=== PATIENT | male | born 1955 | race Caucasian/White ===

== ENCOUNTER 2017-05-27 08:42 | Outpatient (CLI) | payer BC, MEDICARE ==
[2017-05-27 11:55] LABS: Red Blood Cell (RBC) Count 5.16 mill/uL (4.70-6.10); White Blood Cell (WBC) Count 4.4 thou/uL (4.8-10.8)
[2017-05-27 12:01] LABS: PTT 29.2 SEC (22.9-36.1); Prothrombin Time 13.8 SEC (12.0-14.7)
[2017-05-27 12:11] LABS: Anion Gap 15 mmol/L (10-20); BUN (Urea Nitrogen) 15 mg/dL (8.4-25.7); Calc. Creatinine Clearance 0 mL/min (70-130); Calcium 9.4 mg/dL (7.8-10.44); Carbon Dioxide 18 mmol/L (23-31); Estimated GFR-MDRD Greater than 90
--- NOTE | 2017-05-27 12:14 | EKG ---
Test Reason : PEROP Blood Pressure : / mmHG Vent. Rate : 055 BPM Atrial Rate : 055 BPM P-R Int : 164 ms QRS Dur : 086 ms QT Int : 408 ms P-R-T Axes : 019 010 016 degrees QTc Int : 390 ms Sinus bradycardia interference artifact No previous ECGs available Confirmed by DR. Carlos KEARNS ([id number]) on 05/27/2017 12:14:24 PM Referred By: RAGHAVENDRA Confirmed By:DR. Carlos KEARNS
[2017-05-27 12:20] LABS: Chloride 108 mmol/L (98-107)
== END 2017-05-27 08:43 | disposition home or self-care (01) ==
LOC: LABBT 08:42
PROVIDERS: ATTEND Orthopaedic Surgery
DX: Z01.818 Encounter for other preprocedural examination (principal); M16.12 Unilateral primary osteoarthritis, left hip
CPT/HCPCS: 80048; 85027; 85610; 85730; 86850; 86900; 86901; 87081; 93005; 93010

== ENCOUNTER 2017-05-27 09:00 | Inpatient (IN) | payer BC, MEDICARE ==
[2017-05-27 09:26] VITALS: BMI 41.8
[2017-06-02] MEDS ORDERED: Fentanyl 100 MCG/2 ML VIAL ONE ×4 (06:14→09:49)
[2017-06-02] MEDS ORDERED: Ropivacaine 0.2% HCl/PF 0 ML ONE (06:14)
[2017-06-02] MEDS ORDERED: Phenylephrine 10 MG/NS 250 ML 0 ML ONE (06:15)
[2017-06-02] MEDS ORDERED: Midazolam HCl 2 mg/2 ml Vial ONE ×2 (06:19→08:19)
[2017-06-02] MEDS ORDERED: Tranexamic Acid 1,000 MG/100 ML BAG ONE ×2 (06:51→10:42)
[2017-06-02] MEDS ORDERED: CEFAZOLIN/Water 2 GM/20 ML SYRINGE ONE (06:51)
[2017-06-02] MEDS ORDERED: Morphine 2 MG/ML SYRINGE IVP PRN (08:18)
[2017-06-02] MEDS ORDERED: Ondansetron HCl/PF 4 MG/2 ML Vial IVP PRN ×3 (08:18→12:00)
[2017-06-02] MEDS ORDERED: diphenhydrAMINE 25 MG CAP PO PRN ×2 (08:18→12:00)
[2017-06-02] MEDS ORDERED: Zolpidem Tartrate 5 MG TAB PO PRN ×2 (08:18→12:00)
[2017-06-02] MEDS ORDERED: Tranexamic Acid 1,000 MG in Sodium Chloride 0.9% 100 ML IVPB SCH ×3 (08:30→11:00)
[2017-06-02] MEDS ORDERED: Ondansetron HCl/PF 4 MG/2 ML Vial ONE (08:33)
[2017-06-02] MEDS ORDERED: Vecuronium 10 MG VIAL ONE (08:33)
[2017-06-02] MEDS ORDERED: Succinylcholine Chloride 20 MG/ML 10 ml SYRINGE FS ONE (08:33)
[2017-06-02] MEDS ORDERED: Propofol 200 MG/20 ML VIAL ONE (08:33)
[2017-06-02] MEDS ORDERED: Glycopyrrolate 0.2 MG/ML 5 ML SYRINGE ONE (08:33)
[2017-06-02] MEDS ORDERED: Promethazine HCl 25 MG/ML VIAL SLOW IVP PRN (10:32)
[2017-06-02] MEDS ORDERED: Promethazine HCl 25 MG/ML VIAL IM PRN ×2 (10:32→12:00)
[2017-06-02] MEDS ORDERED: HYDROmorphone 2 MG/ML VIAL SLOW IVP PRN (10:32)
[2017-06-02] MEDS ORDERED: Fentanyl 20 MCG/ML 250 ML ONE (10:42)
[2017-06-02] MEDS ORDERED: Morphine 10 MG/ML VIAL SLOW IVP PRN (10:50)
--- NOTE | 2017-06-02 11:46 | RAD ---
SINGLE FRONTAL RADIOGRAPH OF LEFT HIP 06/02/2017 HISTORY: Total hip arthroplasty. FINDINGS: Intraoperative image provided. The image demonstrates a femoral stem in the proximal femur and an a cetabular component. The femoral neck component is not present on this examination. Femoral head c omponent is not present either. Intraoperative gas associated with operative change overlies greate r trochanter. IMPRESSION: Single frontal radiograph left hip during placement of arthroplasty as detailed above. POS: [facility]
[2017-06-02] MEDS ORDERED: Ketorolac Tromethamine 30 MG/ML VIAL IVP PRN (12:00)
[2017-06-02] MEDS ORDERED: Fentanyl 5000 MCG/250 ML CADD IV PRN (12:00)
[2017-06-02] MEDS ORDERED: Naloxone HCl 0.4 mg/ml Vial IV PRN (12:00)
[2017-06-02] MEDS ORDERED: diphenhydrAMINE 50 MG/ML VIAL IM/IV PRN (12:00)
--- NOTE | 2017-06-02 13:24 | OP ---
DATE OF PROCEDURE: 06/02/2017 PREOPERATIVE DIAGNOSIS: Osteoarthritis, left hip. POSTOPERATIVE DIAGNOSIS: Osteoarthritis, left hip. PROCEDURE: Left total hip arthroplasty. ANESTHESIA: General. SURGEON: Ryne Vann M.D. BRONC BREAKER: KIRT Crowley. COMPLICATIONS: None. CONDITION: Good. ESTIMATED BLOOD LOSS: 250 mL. DRAINS: None. TOURNIQUET: None. TECHNIQUE: Consent was obtained. The patient taken to the operating room and placed in supine posi tion. After adequate general anesthesia had been achieved, the patient was placed in the right late ral decubitus position. Axillary roll and hip positioner. The left hip was examined. The patient had marked restriction of motion with approximately 5 degree flexion contracture and flexion up to 1 00 degrees. There is very limited internal and external rotation. Abduction is limited to less jalil n 30 degrees. The left hip and lower extremity were then prepped and draped in usual sterile fashio n. A limited posterolateral approach was performed. The gluteal fascia was split longitudinally ex posing short rotators and piriformis. The piriformis released from its insertion and a posterior ca psular incision was made. The hip was dislocated without complication and the appropriate neck rese ction performed. The head was removed and had grade 4 changes with eburnated bone. There was signi ficant clear joint fluid. The femur was then prepared using sequential hand reamers and broaches up to a size 5. The SI size 5 trial was left in place and the acetabulum exposed. The patient had la rge osteophytes diffusely. These were resected and the reaming was started at 49 mm using the acces jona lateral portal. Sequential reaming was taken up to 54 mm and a 54 mm Dynasty cup was inserted. The single superior screw was placed and a trial 15 degree liner placed posterior superior. A shmuel rt neck with a medium head was placed and the hip put through a range of motion and leg lengths were clinically equal. The patient still has mild flexure contracture, but significant improvement in r otation and abduction. The patient had good stability with extension and external rotation along wi th abduction and flexion and internal rotation. The radiographs showed adequate position and alignm ent of the implant. The trials were then removed. The 15 degree liner was placed posterior superio r, the size 5 Profemur Z stem was then inserted and the medium 38 mm head. Again, reduction was ach ieved and excellent range of motion and stability were noted. The piriformis and posterior capsule were repaired with some #2 Mersilene, the gluteal fascia was closed with #1 Vicryl, subcutaneous wit h 0 and 2-0 Vicryl, and skin with ralph. Sterile bulky dressing was applied. The patient was taken to recovery in stable condition. We will begin rehab protocol. Prognosis is good. KIRT Crowley was instrumental in the safe fastidious placement of this prosthesis. He is skilled in the positioning and maneuvering of the patient for both reduction and retraction to allow success ful placement of the implant. He has skills which are above the standard medical surgical tech available. He assisted in positioning, retraction, reduction, and closure and transfer of the patient during th is procedure.
[2017-06-02] MEDS ORDERED: Cepastat Lozenges 1 LOZ PO PRN (13:56)
[2017-06-02] MEDS: Sodium Chloride 0.9% 1,000 ML IV SCH ×2 (14:04→19:41)
[2017-06-02] MEDS: Aspirin 325 MG TAB PO SCH ×2 (14:04→20:47)
[2017-06-02] MEDS: Ketorolac Tromethamine 30 MG/ML VIAL IVP SCH ×2 (14:05→18:12)
[2017-06-02] MEDS: Senokot S 8.6-50 MG TAB PO SCH ×2 (14:05→20:46)
--- NOTE | 2017-06-02 14:43 | RAD ---
LEFT HIP TWO VIEWS: HISTORY: A 62-year-old male post-op total hip replacement. FINDINGS: Recent total left hip replacement changes are noted without evidence for dislocation or periprosthet ic fracture. IMPRESSION: Unremarkable recent post total left hip replacement changes. POS: [facility]
[2017-06-02] MEDS: CEFAZOLIN/Water 2 GM/20 ML SYRINGE SLOW IVP SCH ×2 (15:51→23:23)
--- NOTE | 2017-06-02 20:36 | HP ---
DATE OF ADMISSION: 06/02/2017 HISTORY OF PRESENT ILLNESS: This is a 62-year-old white male with arthritis of the left hip and chr onic hip pain. Today, he underwent a left hip ORIF by Dr. Vann. The procedure went well. The eugenio saldaña is doing well at this time. He has ambulated today. No other complaints. PAST MEDICAL HISTORY: Fatty liver, cirrhosis, followed by Dr. Pablo; hypertension; hyperlipidemia; ankylosing spondylitis; obesity; depression; BPH; and erectile dysfunction. PAST SURGICAL HISTORY: Include cholecystectomy in 2010. FAMILY HISTORY: Father from prostate cancer. Mother at a skilled nursing. Manolo padron did suffer a stroke and had heart disease. He does have one son and daughter who are healthy. SOCIAL HISTORY: He does not smoke. He uses smokeless tobacco. He does not drink alcohol. He is m arried. He has 2 kids. He dips snuff 3-4 times per day and uses 1 can approximately every 3 days. MEDICATIONS: Fish oil 1000 two b.i.d., aspirin 81 mg daily, multivitamin daily, vitamin E daily, Pr otonix p.r.n., lisinopril/HCTZ 10/12.5 daily. ALLERGIES: Norgesic Forte which causes GI upset. REVIEW OF SYSTEMS: As above. PHYSICAL EXAMINATION: VITAL SIGNS: Temperature 97.6, pulse 71, respirations 20, pulse ox 94, blood pressure 113/71. GENERAL: In no acute distress. HEENT: Clear. HEART: Regular rate and rhythm. LUNGS: Clear. ABDOMEN: Soft. EXTREMITIES: No edema, ice presently on left hip. LABORATORY: None. ASSESSMENT: 1. Postop day #0 status post left hip open reduction internal fixation by Dr. Vann. 2. Hypertension. 3. Morbid obesity. 4. Fatty liver/cirrhosis. 5. Hyperlipidemia. 6. Anxiety disorder. PLAN: 1. Routine postop left hip ORIF protocol. 2. Resume lisinopril/HCTZ daily. 3. We will follow in the hospital.
[2017-06-02] MEDS: Lisinopril/Hydrochlorothiazide 10 mg/12.5 mg Tablet PO SCH (20:45)
[2017-06-02] MEDS ORDERED: Non-Formulary Item 1 EACH (Multivit-Min/Fa/Lycopen/Lutein [Centrum Silver Men Tablet] 1 T PO SCH (21:00)
[2017-06-03] MEDS: Sodium Chloride 0.9% 1,000 ML IV SCH ×2 (04:44→08:10)
[2017-06-03 05:54] LABS: Hematocrit 43.9 % (42.0-52.0); Mean Platelet Volume 8.5 fL (7.4-10.4); Red Blood Cell (RBC) Count 4.63 mill/uL (4.70-6.10); White Blood Cell (WBC) Count 6.3 thou/uL (4.8-10.8)
[2017-06-03] MEDS: Ketorolac Tromethamine 30 MG/ML VIAL IVP SCH ×4 (07:15→18:22)
[2017-06-03] MEDS: Aspirin 325 MG TAB PO SCH ×2 (08:07→20:47)
[2017-06-03] MEDS: Senokot S 8.6-50 MG TAB PO SCH ×2 (08:07→20:48)
[2017-06-03] MEDS: Ferrous Gluconate 324 MG TAB PO SCH ×2 (08:07→20:47)
[2017-06-03] MEDS: Multivitamin W/ Minerals 1 TAB PO SCH (08:07)
--- NOTE | 2017-06-03 08:10 | PRG ---
DATE OF SERVICE: 06/03/2017 PRIMARY CARE PHYSICIAN: Dr. Jaziel Dave. Postop day #1, status post left hip arthroplasty. SUBJECTIVE: The patient continues to have pain in left hip and groin. Has adequate pain that relieved with analgesics. He denies chest pain, shortness of breath or palpitations. So far postop period has been uneventful with physical therapy. OBJECTIVE: VITAL SIGNS: Temperature 98.4, pulse of 89, respirations 16, blood pressure 112 /65, pulse ox is 93% on room air. GENERAL: He is awake and alert, in no acute distress. Speech is clear. NECK: Supple. HEART: Regular rate and rhythm. LUNGS: Clear bilaterally. EXTREMITIES: Dressing in place. No edema. LABORATORY DATA: Hemoglobin and hematocrit are 14.3 and 43.6. ASSESSMENT AND PLAN: This is a 62-year-old gentleman with a history of hypertension, cirrhosis secondary to nonalcoholic steatohepatitis, status post repair of left hip fracture. 1. Postop plan per Dr. Vann including pain management and post operative therapy 2. Hypertension. We will continue lisinopril/hydrochlorothiazide. 3. Fatty liver cirrhosis. Continue to follow up as an outpatient with Dr. Pablo. 4. Disposition. Hopefully home tomorrow. [facility]OSPITALRosemary
[2017-06-03] MEDS ORDERED: Fentanyl 5000 MCG/250 ML CADD IV PRN (10:29)
[2017-06-03] MEDS: Lisinopril/Hydrochlorothiazide 10 mg/12.5 mg Tablet PO SCH (20:47)
[2017-06-04] MEDS: Ketorolac Tromethamine 30 MG/ML VIAL IVP SCH ×3 (00:48→12:53)
[2017-06-04] MEDS: Sodium Chloride 0.9% 1,000 ML IV SCH ×2 (01:26→11:31)
[2017-06-04 04:41] LABS: Hematocrit 40.1 % (42.0-52.0); Mean Platelet Volume 8.2 fL (7.4-10.4); Red Blood Cell (RBC) Count 4.22 mill/uL (4.70-6.10); White Blood Cell (WBC) Count 6.9 thou/uL (4.8-10.8)
--- NOTE | 2017-06-04 08:26 | PRG ---
DATE OF SERVICE: 06/04/2017 PRIMARY CARE PHYSICIAN: Dr. Jaziel Dave. Postop day #2, status post left hip arthroplasty. SUBJECTIVE: The patient has pain in his left hip, groin, and left knee. He has good relief with an algesics, but complaining more of his knee pain now. He denies chest pain, shortness of breath or p alpitations. He is tolerating physical therapy and ambulating in the [place]. His blood pressure has been low. He admits to occasional lightheadedness when bending over. PHYSICAL EXAMINATION: VITAL SIGNS: Temperature 98.5, pulse is 79, respirations 18, blood pressure this morning was 103/61 , last night was 113/70, pulse ox is 97% on room air. GENERAL: He is awake and alert, in no acute distress. HEENT: Speech is clear. NECK: Supple. HEART: Regular rate and rhythm. LUNGS: Clear. ABDOMEN: Obese. EXTREMITIES: With trace edema. Dressing on left hip. NEUROLOGIC: Intact. ASSESSMENT AND PLAN: This is a 62-year-old gentleman with a history of hypertension, now status pos t left hip arthroplasty, doing well. Further plan is for discharge home as per Dr. Vann and arti brooks on how he tolerates therapy today. 1. Hypertension with low readings. We will hold his lisinopril and hydrochlorothiazide for systoli c blood pressure less than 120 and he will continue to do that when he goes home. 2. Fatty liver cirrhosis. Continue follow up as an outpatient. 3. Outpatient followup with Dr. Vann in 2 weeks. Follow up with Dr. Dave in 1 week to check h is blood pressure again.
[2017-06-04] MEDS: Aspirin 325 MG TAB PO SCH (09:03)
[2017-06-04] MEDS: Multivitamin W/ Minerals 1 TAB PO SCH (09:03)
[2017-06-04] MEDS: Senokot S 8.6-50 MG TAB PO SCH (09:03)
[2017-06-04] MEDS: Ferrous Gluconate 324 MG TAB PO SCH (09:03)
[2017-06-04] MEDS ORDERED: Fentanyl 100 MCG/2 ML VIAL SLOW IVP PRN (10:29)
[2017-06-04] MEDS ORDERED: HYDROcodone/Acetaminophen 10/325 mg Tablet PO PRN ×2 (10:29)
[2017-06-04] MEDS ORDERED: Morphine IR Tab 15 MG TAB PO PRN ×2 (10:33→10:34)
[2017-06-04 14:12] VITALS: BP 111/69; TEMP 98.7
[2017-06-04] MEDS ORDERED: Aspirin 325 MG TAB PO SCH (21:00)
== END 2017-06-04 16:20 | disposition home or self-care (01) | DRG 470 ==
LOC: SJJU 06-02 05:43
PROVIDERS: ADMIT Orthopaedic Surgery; ATTEND Orthopaedic Surgery
PROC: 0SRB01A Replacement of Left Hip Joint with Metal Synthetic Substitute, Uncemented, Open Approach (ICD-10-PCS; principal; 2017-06-02)
DX: M16.12 Unilateral primary osteoarthritis, left hip (principal); Z68.41 Body mass index [BMI] 40.0-44.9, adult; K74.60 Unspecified cirrhosis of liver; I10 Essential (primary) hypertension; K76.0 Fatty (change of) liver, not elsewhere classified; E78.5 Hyperlipidemia, unspecified; E66.01 Morbid (severe) obesity due to excess calories; F32.9 Major depressive disorder, single episode, unspecified; N40.0 Benign prostatic hyperplasia without lower urinary tract symptoms; N52.9 Male erectile dysfunction, unspecified; F17.220 Nicotine dependence, chewing tobacco, uncomplicated; Z79.82 Long term (current) use of aspirin; Z88.8 Allergy status to other drugs, medicaments and biological substances; F41.9 Anxiety disorder, unspecified; K75.81 Nonalcoholic steatohepatitis (NASH)
CPT/HCPCS: 36415; 85027; C1776; G8978-GP-CM; G8979-GP-CJ; G8987-GO-CK; G8988-GO-CI; J0131; J1170; J1885; J2250; J2405; J2704; J2795; J3010

== ENCOUNTER 2017-09-05 20:08 | Emergency (ER) | payer BC, MEDICARE ==
[2017-09-05 20:52] LABS: #Eosinphils 0.2 thou/uL (0.0-0.7); #Lymphocytes 1.2 thou/uL (1.20-3.40); #Monocytes 0.3 thou/uL (0.11-0.59); #Neutrophils 3.6 thou/uL (1.40-6.50); %Basophils 0.3 % (0.0-1.0); %Eosinophils 3.4 % (0.0-10.0); %Lymphocytes 22.9 % (21.0-51.0); %Monocytes 5.8 % (0.0-10.0); %Neutrophils 67.6 % (42.0-75.0); Hemoglobin 16.3 g/dL (14.0-18.0); Mean Corpuscular HGB CONC 34.4 g/dL (32.0-36.0); Mean Corpuscular Volume 92.9 fl (80.0-94.0); Mean Platelet Volume 7.9 fL (7.4-10.4); Platelet Count 129 thou/uL (130-400); Red Blood Cell (RBC) Count 5.09 mill/uL (4.70-6.10); White Blood Cell (WBC) Count 5.3 thou/uL (4.8-10.8)
[2017-09-05 20:59] LABS: INR-International Normal Ratio 1.1; PTT 29.1 SEC (22.9-36.1); Prothrombin Time 13.8 SEC (12.0-14.7)
[2017-09-05 21:13] LABS: ALT (SGPT) 23 U/L (8-55); AST (SGOT) 21 U/L (5-34); Albumin 4.1 g/dL (3.4-4.8); Alkaline Phosphatase 69 U/L (40-150); Anion Gap 13 mmol/L (10-20); BUN (Urea Nitrogen) 13 mg/dL (8.4-25.7); Bilirubin, Total 0.7 mg/dL (0.2-1.2); Calc. Creatinine Clearance 0 mL/min (70-130); Calcium 9.2 mg/dL (7.8-10.44); Carbon Dioxide 27 mmol/L (23-31); Chloride 106 mmol/L (98-107); Estimated GFR-MDRD Greater than 90; Globulin 3.2 g/dL (2.4-3.5); Glucose 107 mg/dL (80-115); Potassium 3.6 mmol/L (3.5-5.1); Protein, Total 7.3 g/dL (5.8-8.1); Sodium 142 mmol/L (136-145)
[2017-09-06] MEDS ORDERED: Enoxaparin Sodium 40 MG/0.4 ML SYRINGE ONE (00:47)
[2017-09-06] MEDS ORDERED: Enoxaparin Sodium 60 MG/0.6 ML SYRINGE ONE (00:47)
--- NOTE | 2017-09-06 08:53 | ULT ---
PRELIMINARY REPORT/[facility]/EMERGENCY AFTER HOURS PROCEDURE: Addendum created by Klever Fonseca MD on 09/06/2017 3:47 AM Central Time ([place] & [place]) THIS REPORT CONTAINS FINDINGS THAT MAY BE CRITICAL TO PATIENT CARE. The findings were verbally commun icated via telephone conference with Dr. Eaton by Dr. Fonseca on 09/06/2017 3:46 AM QUALITY RN. The result s were acknowledged and understood. Initial Report created on 09/06/2017 3:30 AM Central Time ([place] & [place]) EXAM: US Duplex Left Lower Extremity Veins CLINICAL HISTORY: 62 years old, male; Pain; Leg, lower; Left; Prior surgery; Surgery date: 1-6 months; Surgery type: Hi p TECHNIQUE: Real-time ultrasound scan of the veins of the left lower extremity with color Doppler flow, spectral waveform analysis and compression. COMPARISON: No relevant prior studies available. FINDINGS: Deep veins: There is acute deep venous thrombosis extending from the distal femoral vein through the popliteal vein, and into the posterior tibial vein. Superficial veins: No acute findings. No thrombus in the visualized great saphenous vein. Soft tissues: No acute findings. No popliteal cyst. IMPRESSION: Acute left sided deep venous thrombosis. Thank you for allowing us to participate in the care of your patient. Dictated and Authenticated by: Klever Fonseca MD 09/06/2017 3:30 AM Central Time ([place] & [place]) FINAL REPORT LEFT LOWER EXTREMITY VENOUS ULTRASOUND INCLUDING COLOR AND SPECTRAL DOPPLER IMAGING: EMERGENCY AFTER HOURS PROCEDURE TIME: 12:12 a.m. DATE: 09/06/17. FINDINGS/IMPRESSION: Exam performed from groin to ankle including visualized greater saphenous, common femoral, superficia l femoral, profunda femoral, popliteal, trifurcation, and posterior tibial vein regions. There is in traluminal obstructing thrombus from the distal superficial femoral vein down through the popliteal v ein and into the posterior tibial vein. IMPRESSION: Acute left-sided deep venous thrombosis. POS: [facility]
--- NOTE | 2017-09-06 08:59 | CT ---
PRELIMINARY REPORT/[facility]/EMERGENCY AFTER HOURS PROCEDURE: EXAM: CT Angiography Chest With Intravenous Contrast CLINICAL HISTORY: 62 years old, male; Pain; Chest pain; Type not specified; Patient HX: R/O pe TECHNIQUE: Axial computed tomographic angiography images of the chest with intravenous contrast using pulmonary embolism protocol. CONTRAST: 100 mL of ISOVUE administered intravenously. COMPARISON: No relevant prior studies available. FINDINGS: Pulmonary arteries: No acute findings. No pulmonary embolism. Aorta: No acute findings. No thoracic aortic aneurysm. Lungs: No acute findings. No mass. No consolidation. Pleural space: No acute findings. No significant effusion. No pneumothorax. Heart: No acute findings. No cardiomegaly. No significant pericardial effusion. No evidence of RV dys function. Bones/joints: Chronic degenerative spinal changes without acute fracture or dislocation. Probable hem angioma at T11. Soft tissues: No acute findings. Lymph nodes: No acute findings. No enlarged lymph nodes. Liver: Liver demonstrates fatty infiltration without visible focal mass. Cirrhotic morphology. Gallbladder and bile ducts: Gallbladder has been removed. Spleen: Spleen enlarged at 13.8 cm. IMPRESSION: No pulmonary embolism. No pneumonia, mass, or edema. Cirrhotic liver. Splenomegaly. Thank you for allowing us to participate in the care of your patient. Dictated and Authenticated by: Klever Fonseca MD 09/06/2017 2:15 AM Central Time ([place] & [place]) FINAL REPORT CT ANGIOGRAM CHEST INCLUDING 3D RENDERING: EMERGENT AFTER HOURS EXAMINATION TIME: 1:38 a.m. DATE: 09/06/17. No central pulmonary artery thrombosis. The more peripheral pulmonary arteries, particularly in the lower lobe regions, show moderate motion artifact and small peripheral lower lobe pulmonary artery th rombosis cannot be excluded from this study given this artifact and contrast bolus. POS: [facility]
[2017-09-06] MEDS ORDERED: ISOVUE-370 76%-LOCM 1 ML ONE (13:24)
== END 2017-09-06 03:58 | disposition home or self-care (01) ==
LOC: ERS 20:08
DX: I82.412 Acute embolism and thrombosis of left femoral vein (principal); I82.432 Acute embolism and thrombosis of left popliteal vein; I82.442 Acute embolism and thrombosis of left tibial vein; I10 Essential (primary) hypertension; F32.9 Major depressive disorder, single episode, unspecified; F17.220 Nicotine dependence, chewing tobacco, uncomplicated; Z71.6 Tobacco abuse counseling
CPT/HCPCS: 36415; 71275; 80053; 83880; 85025; 85610; 85730; 96372; 99406; J1650

== ENCOUNTER 2017-09-12 16:43 | Emergency (ER) | payer BC, MEDICARE ==
[2017-09-12 17:49] LABS: #Basophils 0.1 thou/uL (0.0-0.2); #Eosinphils 0.1 thou/uL (0.0-0.7); #Lymphocytes 1.4 thou/uL (1.20-3.40); #Monocytes 0.3 thou/uL (0.11-0.59); #Neutrophils 3.6 thou/uL (1.40-6.50); %Eosinophils 2.6 % (0.0-10.0); %Lymphocytes 26.2 % (21.0-51.0); %Neutrophils 65.3 % (42.0-75.0); Hemoglobin 16.1 g/dL (14.0-18.0); Mean Corpuscular HGB CONC 33.8 g/dL (32.0-36.0); Mean Corpuscular Hemoglobin 31.6 pg (27.0-31.0); Mean Corpuscular Volume 93.6 fl (80.0-94.0); Mean Platelet Volume 7.8 fL (7.4-10.4); Platelet Count 169 thou/uL (130-400); RBC Distribution Width 13.1 % (11.5-14.5); White Blood Cell (WBC) Count 5.5 thou/uL (4.8-10.8)
[2017-09-12 17:56] LABS: PTT 33.8 SEC (22.9-36.1); Prothrombin Time 13.4 SEC (12.0-14.7)
[2017-09-12 18:15] LABS: ALT (SGPT) 97 U/L (8-55); AST (SGOT) 52 U/L (5-34); Alkaline Phosphatase 61 U/L (40-150); Anion Gap 11 mmol/L (10-20); BUN (Urea Nitrogen) 19 mg/dL (8.4-25.7); Bilirubin, Total 0.5 mg/dL (0.2-1.2); Calc. Creatinine Clearance 0 mL/min (70-130); Calcium 9.9 mg/dL (7.8-10.44); Carbon Dioxide 26 mmol/L (23-31); Chloride 104 mmol/L (98-107); Estimated GFR-MDRD 81; Globulin 3.3 g/dL (2.4-3.5); Glucose 110 mg/dL (80-115); Potassium 4.3 mmol/L (3.5-5.1); Protein, Total 7.3 g/dL (5.8-8.1); Sodium 137 mmol/L (136-145)
== END 2017-09-12 22:35 | disposition home or self-care (01) ==
LOC: ERS 16:43
DX: S30.1XXA Contusion of abdominal wall, initial encounter (principal); I10 Essential (primary) hypertension; F32.9 Major depressive disorder, single episode, unspecified; Z86.718 Personal history of other venous thrombosis and embolism; F17.220 Nicotine dependence, chewing tobacco, uncomplicated; X58.XXXA Exposure to other specified factors, initial encounter
CPT/HCPCS: 36415; 80053; 85025; 85610; 85730; 99406

== ENCOUNTER 2018-04-09 14:17 | Outpatient (CLI) | payer BC, MEDICARE ==
--- NOTE | 2018-04-09 16:03 | MRI ---
CERVICAL SPINE MRI WITHOUT CONTRAST 04/09/18 HISTORY: Pain in the back of the head. Neck pain. Pain between shoulder blades. COMPARISON: None. TECHNIQUE: Cervical spine MRI is performed without intravenous gadolinium administration. Multisequential, multi planar imaging is performed. FINDINGS: Appropriate T1 marrow signal intensity of the cervical vertebrae. Cervical spine vertebral body heigh t is maintained. There is no fracture. No significant STIR hyperintensity to suggest vertebral body e daniel or ligamentous injury. The visualized brain parenchyma, cervicomedullary junction, cervical cord and the upper thoracic cord has normal size and signal intensity. C2-C3: There is a left paracentral disc osteophyte complex which minimally buts the left aspect of th e cord. No cord signal abnormality. No significant central canal stenosis. Right neural foramen is pa tent. Moderate left foraminal narrowing due to degenerative change of the uncovertebral joint. C3-C4: There is a central/left paracentral disc osteophyte complex that effaces the ventral subarachn oid space. No significant mass effect upon the left hemicord. No significant central canal stenosis. Right neural foramen is patent. Mild left foraminal narrowing due to degenerative changes of the unc overtebral joint. C4-C5: Limited evaluation in the axial T2 images due to poor signal. Based on the other sequences, th ere does appear to be a central/left paracentral disc osteophyte complex. There may be some mass effe ct upon the ventral cord. At least mild to moderate central canal stenosis in the left aspect of the cord. Right neural foramen is patent. There is bilateral facet hypertrophy. There is moderate left fo raminal narrowing. C5-C6: Broad based disc osteophyte complex with a left paracentral component. At least mild central c anal stenosis. Right neural foramen is patent. Mild left foraminal narrowing. There is left facet hyp ertrophy. C6-C7: Central disc osteophyte complex abuts the thecal sac. There is mild central canal stenosis. Bi lateral facet hypertrophy. Mild bilateral foraminal narrowing. C7-T1: No significant central canal stenosis. Neural foramina are patent. IMPRESSION: Extensive left sided degenerative disc disease of the cervical spine as described above. There is ass ociation of left neural foraminal narrowing. POS: [facility]
== END 2018-04-09 14:18 | disposition home or self-care (01) ==
LOC: TBSIIMAG 14:17
PROVIDERS: ATTEND Anesthesiology Pain Medicine
DX: M48.02 Spinal stenosis, cervical region (principal); M50.30 Other cervical disc degeneration, unspecified cervical region; M99.81 Other biomechanical lesions of cervical region
CPT/HCPCS: 72141

== ENCOUNTER 2018-06-17 09:17 | Outpatient (CLI) | payer BC, MEDICARE ==
--- NOTE | 2018-06-17 12:10 | MRI ---
MRI ABDOMEN WITH AND WITHOUT IV CONTRAST: HISTORY: Cirrhosis followup. FINDINGS: Motion artifact reduces the sensitivity of the exam. The liver demonstrates signal dropout on the [id number] images compared to the spleen consistent wi th fatty infiltration. Multiple tiny cysts are seen in the liver and the kidneys. The patient is po st cholecystectomy. The pancreas and adrenal glands are normal. The spleen measures 13.5 cm in jas th. No enhancing hepatic mass or abnormal biliary ductal dilatation is identified. No free air or lymphadenopathy is noted in the abdomen. There is no evidence of aneurysmal dilatatio n of the abdominal aorta. A circumaortic left renal vein is present. Degenerative changes are prese nt in the spine. No abnormal areas of postcontrast enhancement are seen. IMPRESSION: 1. Fatty liver. 2. Small cysts in the liver and kidneys. No evidence of enhancing liver mass. 3. Mild splenomegaly. POS: [facility]
[2018-06-17] MEDS ORDERED: Gadobenate Dimeglumine 529 MG/1 ML (20ML VIAL) ONE (13:39)
== END 2018-06-17 09:18 | disposition home or self-care (01) ==
LOC: TBSIIMAG 09:17
PROVIDERS: ATTEND Internal Medicine Gastroenterology
DX: K74.60 Unspecified cirrhosis of liver (principal); I82.409 Acute embolism and thrombosis of unspecified deep veins of unspecified lower extremity; K76.0 Fatty (change of) liver, not elsewhere classified; N28.1 Cyst of kidney, acquired; K76.89 Other specified diseases of liver; R16.1 Splenomegaly, not elsewhere classified
CPT/HCPCS: 74183; A9579

== ENCOUNTER 2018-09-16 10:57 | Outpatient (CLI) | payer BC, MEDICARE ==
--- NOTE | 2018-09-16 12:19 | RAD ---
CERVICAL SPINE RADIOGRAPH SERIES WITH OBLIQUE AND FLEXION/EXTENSION VIEWS: INDICATIONS: Acute cervical radiculopathy. TECHNIQUE: Eight views provided. FINDINGS: Lateral view reveals no significant malalignment. There is moderate multilevel degenerative change w ith endplate irregularity, multilevel marginal osteophyte formation, and multilevel facet osteoarthri tis. There is a component of motion artifact, which does limit evaluation. On the flexion/extension views, there is no definite abnormal translational motion visualized. Oblique views reveal multilev el mild to moderate osseous compromise of the neural foramina. The lateral masses of C1 are maintain ed in alignment. The dens is intact where visualized. IMPRESSION: 1. Moderate multilevel degenerative change of the cervical spine. 2. No acute malalignment or significant translational motion is visualized. Given the history of acute radiculopathy, consider MRI of the cervical spine for further assessment. POS: [facility]
== END 2018-09-16 10:58 | disposition home or self-care (01) ==
LOC: BICRAD 10:57
PROVIDERS: ATTEND Anesthesiology Pain Medicine
DX: M47.22 Other spondylosis with radiculopathy, cervical region (principal)
CPT/HCPCS: 72052

== ENCOUNTER 2018-09-22 08:30 | Outpatient (CLI) | payer BC, MEDICARE ==
--- NOTE | 2018-09-22 09:40 | MRI ---
MRI CERVICAL SPINE WITHOUT CONTRAST: HISTORY: M54.12, acute cervical radiculopathy. COMPARISON: MRI 04/09/2018. FINDINGS: Exam is limited to motion artifact. Cerebellar tonsils terminate at the level of the foramen magnum. No marrow infiltrative process. No acute fracture or malalignment. Cord signal is normal. Paraspinal soft tissues appear unremarkable. Levels are as follows: C2-3: Left paracentral and posterior disk-osteophyte complex. Mild left-sided neural foraminal narr owing. This does abut the cord. Moderate left-sided neural foraminal narrowing due to the left paracentral posterior disk-osteophyte complex as well as uncinate process hypertrophy. C3-4: There is a central and left paracentral posterior disk-osteophyte complex with mild narrowing of the ventral CSF space. There is mild uncinate process hypertrophy bilaterally, greater on the lef t with moderate left-sided neural foraminal narrowing and mild right-sided neural foraminal narrowing . C4-5: There is a central posterior disk-osteophyte complex with near cord abutment. Moderate uncina te process hypertrophy. Moderate bilateral neural foraminal narrowing. C5-6: Limited due to lack of signal. There is a broad-based posterior disk-osteophyte complex. Mil d ligamentum flavum hypertrophy. There is abutment of the ventral cord. There is a moderate left an d mild right-sided neural foraminal narrowing due to facet arthropathy. C6-7: Left paracentral and subforaminal posterior disk-osteophyte complex. Moderate facet arthrosis . Moderate left and mild right-sided neural foraminal narrowing. IMPRESSION: Multilevel spondylosis as described with cord abutment at multiple levels. Findings are similar to t 04/09/2018 study. POS: [facility]
== END 2018-09-22 08:31 | disposition home or self-care (01) ==
LOC: TBSIIMAG 08:30
PROVIDERS: ATTEND Anesthesiology Pain Medicine
DX: M47.22 Other spondylosis with radiculopathy, cervical region (principal)
CPT/HCPCS: 72141

== ENCOUNTER 2019-05-14 12:05 | Outpatient (CLI) | payer BC, MEDICARE ==
[2019-05-14 13:14] LABS: #Eosinphils 0.1 thou/uL (0.0-0.7); #Monocytes 0.3 thou/uL (0.11-0.59); #Neutrophils 2.1 thou/uL (1.40-6.50); %Basophils 0.3 % (0.0-1.0); %Eosinophils 4.2 % (0.0-10.0); %Lymphocytes 29.1 % (21.0-51.0); %Monocytes 7.1 % (0.0-10.0); %Neutrophils 59.4 % (42.0-75.0); Hemoglobin 16.2 g/dL (14.0-18.0); Mean Corpuscular HGB CONC 35.5 g/dL (32.0-36.0); Mean Corpuscular Hemoglobin 32.7 pg (27.0-31.0); Mean Corpuscular Volume 92.1 fL (78.0-98.0); Mean Platelet Volume 8.2 fL (7.4-10.4); Platelet Count 120 thou/uL (130-400); RBC Distribution Width 12.3 % (11.5-14.5); Red Blood Cell (RBC) Count 4.96 mill/uL (4.70-6.10); White Blood Cell (WBC) Count 3.6 thou/uL (4.8-10.8)
[2019-05-14 13:47] LABS: ALT (SGPT) 24 U/L (8-55); AST (SGOT) 23 U/L (5-34); Albumin 4.2 g/dL (3.4-4.8); Alkaline Phosphatase 79 U/L (40-110); Anion Gap 12 mmol/L (10-20); BUN (Urea Nitrogen) 15 mg/dL (8.4-25.7); Bilirubin, Total 0.3 mg/dL (0.2-1.2); Calc. Creatinine Clearance 0 mL/min (70-130); Calcium 9.4 mg/dL (7.8-10.44); Carbon Dioxide 24 mmol/L (23-31); Chloride 105 mmol/L (98-107); Estimated GFR-MDRD 84; Globulin 2.7 g/dL (2.4-3.5); Glucose 117 mg/dL (80-115); Protein, Total 6.9 g/dL (5.8-8.1); Sodium 137 mmol/L (136-145)
== END 2019-05-14 12:06 | disposition home or self-care (01) ==
LOC: LABBT 12:05
PROVIDERS: ATTEND Internal Medicine Cardiovascular Disease
DX: Z01.812 Encounter for preprocedural laboratory examination (principal); R07.9 Chest pain, unspecified
CPT/HCPCS: 80053; 85025

== ENCOUNTER → 2019-05-19 | Day surgery (SDC) | payer BC, MEDICARE ==
[2019-05-14 12:15] VITALS: BMI 44.1
[~2019-05-19] MED LIST: Fentanyl 100 MCG/2 ML VIAL ONE; Heparin 10,000 UNITS/1 ML VIAL ONE; Iopamidol 370 76% 100 ML VIAL ONE; Lidocaine 1% (PF) 30 ML VIAL ONE; Midazolam HCl 2 mg/2 ml Vial ONE; Nitroglycerin 100MG/250ML BOT 250 ML ONE; Verapamil 5 MG/2 ML VIAL ONE
== END ==
LOC: CCL 05:52
PROVIDERS: ATTEND Internal Medicine Cardiovascular Disease
PROC: 4A023N7 Measurement of Cardiac Sampling and Pressure, Left Heart, Percutaneous Approach (ICD-10-PCS; principal; 2019-05-19)
PROC: B2111ZZ Fluoroscopy of Multiple Coronary Arteries using Low Osmolar Contrast (ICD-10-PCS; principal; 2019-05-19)
DX: R07.89 Other chest pain (principal); I25.10 Atherosclerotic heart disease of native coronary artery without angina pectoris; E78.5 Hyperlipidemia, unspecified; E66.9 Obesity, unspecified; F41.9 Anxiety disorder, unspecified; F32.9 Major depressive disorder, single episode, unspecified; F17.220 Nicotine dependence, chewing tobacco, uncomplicated; Z68.41 Body mass index [BMI] 40.0-44.9, adult; Z79.01 Long term (current) use of anticoagulants; Z79.82 Long term (current) use of aspirin; Z79.899 Other long term (current) drug therapy; Z88.8 Allergy status to other drugs, medicaments and biological substances
CPT/HCPCS: 93458; 93571; 99152; 99153; C1769; C1887; J0153; J1644; J2001; J2250; J3010; Q9967

== ENCOUNTER 2019-08-02 10:39 | Outpatient (CLI) | payer BC, MEDICARE ==
[2019-08-02 15:51] LABS: Estimated GFR-MDRD - POC Greater than 90
--- NOTE | 2019-08-02 16:11 | CT ---
CT Abdomen Pelvis W Con: 08/02/2019 12:00 AM CLINICAL INFORMATION: Painful abdominal knot below the belly button when he coughs. COMPARISON: 09/22/2015 TECHNIQUE: Multiple contiguous axial images were obtained and a CT of the abdomen and pelvis with IV contrast. Oral contrast was administered. Coronal and sagittal reformats were performed. FINDINGS: Lower Chest: within normal limits. Abdomen: Liver: within normal limits. Bile Ducts: Normal caliber. Gallbladder: Removed Pancreas: within normal limits. Spleen: within normal limits. Adrenals: within normal limits. Kidneys: within normal limits. Pelvis: Reproductive Organs: No pelvic masses. Ureters: within normal limits. Bladder: within normal limits. Peritoneum: No ascites or free air, no fluid collection. Bowel: Normal caliber. Scattered diverticula in the colon. Normal appendix. Mesentery and Retroperitoneum: No enlarged mesenteric or retroperitoneal lymph nodes. Vessels: Normal. Abdominal Wall: Scattered areas of stranding change in the abdominal wall may be from from injection sites. No hernia is visualized. Bones: Degenerative changes in the spine. The patient has a left hip prosthesis. IMPRESSION: 1. No evidence of acute intraabdominal or pelvic abnormality. 2. Diverticulosis
== END 2019-08-02 10:40 | disposition home or self-care (01) ==
LOC: CT 10:39
PROVIDERS: ATTEND Family Medicine
DX: R10.2 Pelvic and perineal pain (principal); K57.90 Diverticulosis of intestine, part unspecified, without perforation or abscess without bleeding
CPT/HCPCS: 74177; 82565

== ENCOUNTER 2020-01-31 07:29 | Outpatient (CLI) | payer BC, MEDICARE, OTHER ==
[2020-01-31 13:38] LABS: INR-International Normal Ratio 1.4; PTT 26.9 sec (22.9-36.1)
[2020-01-31 14:07] LABS: ALT (SGPT) 31 U/L (8-55); AST (SGOT) 27 U/L (5-34); Albumin 4.2 g/dL (3.4-4.8); Alkaline Phosphatase 89 U/L (40-110); Anion Gap 16 mmol/L (10-20); BUN (Urea Nitrogen) 14 mg/dL (8.4-25.7); Bilirubin, Total 0.7 mg/dL (0.2-1.2); Calc. Creatinine Clearance 0 mL/min (70-130); Calcium 9.2 mg/dL (7.8-10.44); Carbon Dioxide 25 mmol/L (23-31); Chloride 99 mmol/L (98-107); Estimated GFR-MDRD 78; Globulin 2.3 g/dL (2.4-3.5); Glucose 376 mg/dL (80-115); Potassium 3.8 mmol/L (3.5-5.1); Protein, Total 6.5 g/dL (5.8-8.1); Sodium 136 mmol/L (136-145)
[2020-01-31 14:16] LABS: #Eosinphils 0.1 thou/uL (0.0-0.7); #Monocytes 0.3 thou/uL (0.11-0.59); #Neutrophils 2.8 thou/uL (1.40-6.50); %Basophils 0.5 % (0.0-1.0); %Eosinophils 1.8 % (0.0-10.0); %Monocytes 6.4 % (0.0-10.0); %Neutrophils 66.3 % (42.0-75.0); Hemoglobin 16.4 g/dL (14.0-18.0); Mean Corpuscular HGB CONC 33.8 g/dL (32.0-36.0); Mean Corpuscular Hemoglobin 31.8 pg (27.0-31.0); Mean Corpuscular Volume 93.9 fL (78.0-98.0); Platelet Count 107 thou/uL (130-400); Platelet Morphology Comment Appears Decreased; RBC Distribution Width 12.8 % (11.5-14.5); RBC Morphology Normal; Red Blood Cell (RBC) Count 5.15 mill/uL (4.70-6.10); White Blood Cell (WBC) Count 4.2 thou/uL (4.8-10.8)
[2020-02-01 12:18] LABS: SARS-CoV-2 MS2 Positive; SARS-CoV-2 N Gene Negative; SARS-CoV-2 S Gene Negative; SARS-CoV-2 orf1ab Negative
== END 2020-01-31 07:30 | disposition home or self-care (01) ==
LOC: LABBT 07:29
PROVIDERS: ATTEND Internal Medicine Gastroenterology
DX: Z01.812 Encounter for preprocedural laboratory examination (principal); Z11.59 Encounter for screening for other viral diseases; I85.00 Esophageal varices without bleeding; Z86.010 Personal history of colon polyps
CPT/HCPCS: 80053; 82105; 85025; 85610; 85730; 87635; U0003

== ENCOUNTER 2020-02-02 08:24 | Outpatient (CLI) | payer BC, MEDICARE ==
--- NOTE | 2020-02-02 12:06 | CT ---
CT HEAD WITHOUT CONTRAST: Date: 02/02/2020 INDICATION: Headache. Occipital neuralgia. FINDINGS: Ventricles have normal size and position. No evidence of intracranial mass or hemorrhage. No evidence of infarct or edema. Sinuses and mastoids are aerated and appear clear. There is evidence of mild ce rebellar tonsillar ectopia, however, there is no impingement or compression of the brainstem at the f oramen magnum. IMPRESSION: Unremarkable CT head. POS: [facility]
--- NOTE | 2020-02-02 12:53 | MRI ---
MRI ABDOMEN WITH AND WITHOUT IV CONTRSAT: HISTORY: Colonic polyps. Esophageal varices. COMPARISON: 06/17/2018. FINDINGS: Signal dropout on the [id number] images in the liver compared to the spleen consistent with fatty i nfiltration again seen. Multiple tiny cysts in the liver and kidneys are again noted. No enhancing hepatic mass or abdominal biliary ductal dilatation is seen. The patient is status post cholecystect marta. The pancreas and adrenal glands are normal. No free fluid or lymphadenopathy is seen in the abdomen. There is no evidence of aneurysmal dilatation of the abdominal aorta. A circumaortic left renal ve in and splenic varices are again noted. The spleen measures 13.5 cm in length and is stable. There are degenerative changes in the spine. No abnormal areas of post contrast enhancement are seen. IMPRESSION: 1. Stable exam. 2. Fatty liver. No evidence of enhancing liver mass. 3. Small cysts in the liver and kidneys. 4. Mild splenomegaly. POS: [facility]
== END 2020-02-02 08:25 | disposition home or self-care (01) ==
LOC: TBSIIMAG 08:24
PROVIDERS: ATTEND Psychiatry & Neurology Neurology
DX: I85.00 Esophageal varices without bleeding (principal); M54.81 Occipital neuralgia; K76.0 Fatty (change of) liver, not elsewhere classified; N28.1 Cyst of kidney, acquired; K76.89 Other specified diseases of liver; R16.1 Splenomegaly, not elsewhere classified; Z86.010 Personal history of colon polyps
CPT/HCPCS: 70450; 74183

== ENCOUNTER 2020-02-04 08:02 | Day surgery (SDC) | payer BC, MEDICARE ==
[2020-01-28 18:02] VITALS: BMI 42.7
[2020-02-04 09:08] LABS: Prothrombin Time 13.6 sec (12.0-14.7)
[2020-02-04] MEDS ORDERED: Insulin Regular 300 UNITS/3 ML VIAL ONE (09:11)
[2020-02-04 09:19] LABS: #Eosinphils 0.1 thou/uL (0.0-0.7); #Lymphocytes 0.8 thou/uL (1.20-3.40); #Monocytes 0.3 thou/uL (0.11-0.59); #Neutrophils 2.6 thou/uL (1.40-6.50); %Eosinophils 2.7 % (0.0-10.0); %Lymphocytes 20.8 % (21.0-51.0); %Monocytes 7.4 % (0.0-10.0); %Neutrophils 69.1 % (42.0-75.0); Hemoglobin 16.6 g/dL (14.0-18.0); Mean Corpuscular HGB CONC 34.5 g/dL (32.0-36.0); Mean Corpuscular Hemoglobin 32.5 pg (27.0-31.0); Mean Corpuscular Volume 94.3 fL (78.0-98.0); Mean Platelet Volume 8.1 fL (7.4-10.4); Platelet Count 102 thou/uL (130-400); RBC Distribution Width 12.5 % (11.5-14.5); Red Blood Cell (RBC) Count 5.12 mill/uL (4.70-6.10); White Blood Cell (WBC) Count 3.7 thou/uL (4.8-10.8)
[2020-02-04 09:25] LABS: ALT (SGPT) 37 U/L (8-55); AST (SGOT) 39 U/L (5-34); Albumin 3.9 g/dL (3.4-4.8); Alkaline Phosphatase 64 U/L (40-110); Anion Gap 14 mmol/L (10-20); BUN (Urea Nitrogen) 12 mg/dL (8.4-25.7); Calc. Creatinine Clearance 174 mL/min (70-130); Calcium 8.7 mg/dL (7.8-10.44); Carbon Dioxide 25 mmol/L (23-31); Chloride 97 mmol/L (98-107); Estimated GFR-MDRD Greater than 90; Globulin 2.6 g/dL (2.4-3.5); Glucose 298 mg/dL (80-115); Potassium 3.7 mmol/L (3.5-5.1); Protein, Total 6.5 g/dL (5.8-8.1); Sodium 132 mmol/L (136-145)
[2020-02-04] MEDS ORDERED: Acetaminophen 500 MG TAB ONE (10:31)
[2020-02-04] MEDS ORDERED: EPHEDRINE 25 MG/5 ML SYRINGE ONE (13:17)
[2020-02-04] MEDS ORDERED: PROPOFOL 200 MG/20 ML VIAL ONE (13:17)
--- NOTE | 2020-02-04 13:30 | OP ---
DATE OF PROCEDURE: 02/04/2020 PROCEDURES PERFORMED: Esophagogastroduodenoscopy and colonoscopy with polypectomy. PREPROCEDURE DIAGNOSES: 1. History of cirrhosis. 2. Personal history of colon. ANESTHESIA: TIVA. POSTPROCEDURE DIAGNOSES: 1. Normal EGD. No varices. No portal hypertensive gastropathy. 2. Two diminutive polyps in the ascending and transverse colon, removed by cold snare polypectomy, retrieved and sent to Pathology. 3. Diverticulosis coli diffusely. 4. Otherwise normal colonoscopy. RECOMMENDATIONS: Resume Coumadin today. Await histopathology. Repeat colonoscopy in 5 years. DESCRIPTION OF PROCEDURE: After the patient informed of the risks, benefits, and possible complications of endoscopy including perforation, reaction to medication, aspiration, informed consent was obtained, the patient was brought to endoscopy suite, where he was sedated in gradual fashion. Once he was comfortable, bite block was placed in the incisural orifice. The endoscope was advanced into the esophagus, stomach, into second portion of duodenum and slowly removed. There was good visualization of the mucosa. The stomach was normal in forward and retroflexed views with full distention. There was no evidence of gastric varices or portal hypertensive gastropathy. The antrum was normal. The duodenum was normal. The scope was then brought back in the esophagus after the stomach was desufflated. The esophagus appeared normal. No evidence of varices. The scope was removed. The patient was turned to the room. The rectal examination was performed. The endoscope was then advanced through the anal canal through the colon to the cecum, which was identified by the ileocecal valve and appendiceal orifice. Scope was slowly removed. There was eckert diverticulosis coli. The prep was fair to good. May have missed polyps less than 5 mm in size. There were two small 2 to 3 mm diminutive sessile polyps noted in the ascending colon that were removed by cold snare polypectomy and sent to Pathology. No other polyps or masses were seen. Retroflexed views revealed some internal hemorrhoids. The scope was removed. The patient tolerated the procedure well. There were no complications. Job ID: [id number]
== END 2020-02-04 10:40 | disposition home or self-care (01) ==
LOC: SDC 08:02
PROVIDERS: ATTEND Internal Medicine Gastroenterology
PROC: 0DJ08ZZ Inspection of Upper Intestinal Tract, Via Natural or Artificial Opening Endoscopic (ICD-10-PCS; principal; 2020-02-04)
PROC: 0DBK8ZX Excision of Ascending Colon, Via Natural or Artificial Opening Endoscopic, Diagnostic (ICD-10-PCS; principal; 2020-02-04)
DX: D12.2 Benign neoplasm of ascending colon (principal); K57.30 Diverticulosis of large intestine without perforation or abscess without bleeding; K64.8 Other hemorrhoids; K74.60 Unspecified cirrhosis of liver; K72.90 Hepatic failure, unspecified without coma; M19.90 Unspecified osteoarthritis, unspecified site; F17.290 Nicotine dependence, other tobacco product, uncomplicated; Z86.010 Personal history of colon polyps; Z79.01 Long term (current) use of anticoagulants; Z79.82 Long term (current) use of aspirin; Z79.899 Other long term (current) drug therapy; Z88.4 Allergy status to anesthetic agent; Z88.6 Allergy status to analgesic agent; Z88.8 Allergy status to other drugs, medicaments and biological substances
CPT/HCPCS: 36415; 36416; 80053; 82105; 85025; 85610; 88305; J1815; J2704

== ENCOUNTER 2021-04-11 08:01 | Outpatient (CLI) | payer BC, MEDICARE ==
[2021-04-11] MEDS ORDERED: Iopamidol-370 76% 500 ML 1 ML ONE (09:21)
== END 2021-04-11 08:02 | disposition home or self-care (01) ==
LOC: BICCT 08:01
PROVIDERS: ATTEND Physician Assistant Medical
DX: K74.60 Unspecified cirrhosis of liver (principal); R12 Heartburn; K76.9 Liver disease, unspecified; N20.0 Calculus of kidney; K57.30 Diverticulosis of large intestine without perforation or abscess without bleeding
CPT/HCPCS: 74170; 82565; Q9967

== ENCOUNTER 2022-04-26 07:16 | Outpatient (CLI) | payer BC, MEDICARE | END 2022-04-26 07:17 | disposition home or self-care (01) | LOC: BICULT 07:16 | PROVIDERS: ATTEND Physician Assistant Medical | DX: K74.60 Unspecified cirrhosis of liver (principal); R16.1 Splenomegaly, not elsewhere classified | CPT/HCPCS: 76705 ==

== ENCOUNTER 2022-10-02 07:28 | Outpatient (CLI) | payer BC, MEDICARE | END 2022-10-02 07:29 | disposition home or self-care (01) | LOC: ULT 07:28 | PROVIDERS: ATTEND Physician Assistant Medical | DX: K74.60 Unspecified cirrhosis of liver (principal) | CPT/HCPCS: 76705 ==

== ENCOUNTER 2023-03-19 16:21 | Emergency (ER) | payer BC, MEDICARE ==
[2023-03-19 17:06] LABS: #Eosinphils 0.1 thou/uL (0.0-0.7); #Monocytes 0.3 thou/uL (0.11-0.59); #Neutrophils 3.5 thou/uL (1.40-6.50); %Basophils 0.4 % (0.0-1.0); %Lymphocytes 19.5 % (21.0-51.0); %Monocytes 5.8 % (0.0-10.0); %Neutrophils 73.1 % (42.0-75.0); Mean Corpuscular HGB CONC 33.3 g/dL (32.0-36.0); Mean Corpuscular Hemoglobin 32.3 pg (27.0-31.0); Mean Platelet Volume 10.6 fL (7.4-10.4); Platelet Count 114 10x3/uL (130-400); RBC Distribution Width 13.3 % (11.5-14.5); Red Blood Cell (RBC) Count 4.64 mill/uL (4.70-6.10); White Blood Cell (WBC) Count 4.8 10x3/uL (4.8-10.8)
[2023-03-19 17:30] LABS: ALT (SGPT) 30 U/L (8-55); AST (SGOT) 34 U/L (5-34); Albumin 3.9 g/dL (3.4-4.8); Alkaline Phosphatase 46 U/L (40-110); Anion Gap 13 mmol/L (10-20); BUN (Urea Nitrogen) 19 mg/dL (8.4-25.7); Bilirubin, Total 0.7 mg/dL (0.2-1.2); Calc. Creatinine Clearance 0 mL/min (70-130); Calcium 8.9 mg/dL (7.8-10.44); Carbon Dioxide 22 mmol/L (23-31); Chloride 110 mmol/L (98-107); Estimated GFR 95; Globulin 2.7 g/dL (2.4-3.5); Glucose 94 mg/dL (80-115); Protein, Total 6.6 g/dL (5.8-8.1); Sodium 141 mmol/L (136-145)
[2023-03-19] MEDS ORDERED: Cephalexin 250 MG CAP ONE (19:26)
== END 2023-03-19 19:38 | disposition home or self-care (01) ==
LOC: ERS 16:21
DX: L03.116 Cellulitis of left lower limb (principal); I10 Essential (primary) hypertension; E78.5 Hyperlipidemia, unspecified; E11.9 Type 2 diabetes mellitus without complications; F17.220 Nicotine dependence, chewing tobacco, uncomplicated
CPT/HCPCS: 36415; 80053; 85025; 85379

== ENCOUNTER 2023-04-04 09:15 | Outpatient (CLI) | payer MEDICARE, BC | END 2023-04-04 09:16 | disposition home or self-care (01) | LOC: ULT 09:15 | PROVIDERS: ATTEND Internal Medicine Gastroenterology | DX: K74.60 Unspecified cirrhosis of liver (principal) | CPT/HCPCS: 76705 ==

== ENCOUNTER 2023-07-10 07:08 | Outpatient (CLI) | payer BC, MEDICARE | END 2023-07-10 07:09 | disposition home or self-care (01) | LOC: CT 07:08 | PROVIDERS: ATTEND Family Medicine | DX: R31.29 Other microscopic hematuria (principal); N20.0 Calculus of kidney | CPT/HCPCS: 74177 ==

== ENCOUNTER 2023-08-28 18:34 | Emergency (ER) | payer MEDICARE, BC ==
[2023-08-28 19:35] LABS: #Eosinphils 0.1 thou/uL (0.0-0.7); #Monocytes 0.2 thou/uL (0.11-0.59); #Neutrophils 2.4 thou/uL (1.40-6.50); %Basophils 0.6 % (0.0-1.0); %Eosinophils 2.2 % (0.0-10.0); %Lymphocytes 25.2 % (21.0-51.0); %Monocytes 5.8 % (0.0-10.0); %Neutrophils 66.2 % (42.0-75.0); Hematocrit 43.2 % (42.0-52.0); Hemoglobin 15.1 g/dL (14.0-18.0); Mean Corpuscular Hemoglobin 32.8 pg (27.0-31.0); Mean Corpuscular Volume 93.9 fl (78.0-98.0); Mean Platelet Volume 10.8 fL (7.4-10.4); Platelet Count 127 10x3/uL (130-400); RBC Distribution Width 13.2 % (11.5-14.5); White Blood Cell (WBC) Count 3.6 10x3/uL (4.8-10.8)
[2023-08-28 19:57] LABS: ALT (SGPT) 28 U/L (8-55); AST (SGOT) 27 U/L (5-34); Alkaline Phosphatase 68 U/L (40-110); Anion Gap 13 mmol/L (10-20); BUN (Urea Nitrogen) 18 mg/dL (8.4-25.7); Bilirubin, Total 0.8 mg/dL (0.2-1.2); Calc. Creatinine Clearance 0 mL/min (70-130); Calcium 9.3 mg/dL (7.8-10.44); Carbon Dioxide 20 mmol/L (23-31); Chloride 111 mmol/L (98-107); Estimated GFR 95; Globulin 2.8 g/dL (2.4-3.5); Glucose 169 mg/dL (80-115); Potassium 3.5 mmol/L (3.5-5.1); Protein, Total 6.8 g/dL (5.8-8.1); Sodium 140 mmol/L (136-145)
[2023-08-28] MEDS ORDERED: Ketorolac Tromethamine 30 MG (1 mL) VIAL ONE (20:49)
[2023-08-28] MEDS ORDERED: Ondansetron PF 4 MG/2 ML Vial ONE (20:50)
[2023-08-28 21:21] LABS: INR-International Normal Ratio 2.9; Prothrombin Time 30.5 sec (12.0-14.7)
[2023-08-28 22:28] LABS: Bacteria/HPF 1+ HPF (None Seen); Bilirubin Negative (Negative); Blood, Urine 3+ (Negative); CAUTI Indications for Culture Dysuria,urgency,freq; Clarity Extra Turbid (Clear); Glucose, Urine (Dipstick) Normal (Negative); Ketone, Urine Negative (Negative); Leukocyte Negative Leu/uL (Negative); Mucous/LPF Rare LPF (<2+); Nitrite Negative (Negative); Protein, Urine (Dipstick) 200 mg/dL (Neg-Trace); RBC/HPF Greater than 50 HPF (0-3); Specific Gravity, Urine 1.029 (1.002-1.036); Squamous Epithelial None Seen HPF (0-3); Urobilinogen Normal mg/dL (Less than 2); WBC/HPF 0-3 HPF (0-3)
[2023-08-28 22:29] LABS: Urine Culture Reflex No No
== END 2023-08-28 23:40 | disposition home or self-care (01) ==
LOC: ERS 18:34
DX: N13.2 Hydronephrosis with renal and ureteral calculous obstruction (principal); I10 Essential (primary) hypertension; E11.9 Type 2 diabetes mellitus without complications; F17.220 Nicotine dependence, chewing tobacco, uncomplicated; Z86.718 Personal history of other venous thrombosis and embolism
CPT/HCPCS: 36415; 74176; 80053; 81001; 85025; 85610; 96374; 96375; J1885; J2405

== ENCOUNTER 2025-04-20 08:37 | Outpatient (CLI) | payer MEDICARE, OTHER ==
[2025-04-20 09:07] LABS: Estimated GFR - POC 99.0
[2025-04-20] MEDS ORDERED: Iopamidol-370 76% 500 ML MDV (1 ML CHARGE) ONE (10:21)
== END 2025-04-20 08:38 | disposition home or self-care (01) ==
LOC: CT 08:37
PROVIDERS: ATTEND Surgery
DX: R10.30 Lower abdominal pain, unspecified (principal)
CPT/HCPCS: 36415; 74177; 82565; Q9967